=== PATIENT | male | born 1990 | race Two or more races ===

== ENCOUNTER 2019-08-30 20:25 | Emergency (ER) | payer MEDICAID ==
[~2019-08-30] VITALS: Ht 172.7 cm; Wt 59.0 kg
[2019-08-30 21:41] LABS: Basophils # (auto) 0 10 ^3/uL (0-0.2); Basophils % (auto) 0.2 % (0.0-2.0); Eosinophils # (auto) 0 10 ^3/uL (0-0.8); Hemoglobin 16.7 g/dL (13.5-17.5); Lymphocytes # (auto) 1.5 10 ^3/uL (0.4-5.4); Lymphocytes % (auto) 13.1 % (10.0-50.0); Mean Corpuscular Hemoglobin 30.6 pg (28.0-32.0); Mean Corpuscular Hgb Conc. 33.4 g/dL (32.0-36.0); Mean Corpuscular Volume 91.7 fL (80.0-100.0); Monocytes # (auto) 0.8 10 ^3/uL (0-1.3); Monocytes % (auto) 7.2 % (0.0-12.0); Neutrophils # (auto) 9.1 10 ^3/uL (1.6-8.6); Neutrophils % (auto) 79.5 % (37.0-80.0); Platelet Count (auto) 291 10^3/uL (140-450); Red Blood Cells 5.45 10^6/uL (4.5-5.90); Red Cell Distribution Width 13.1 % (11.8-14.3); White Blood Cell 11.5 10^3/uL (4.4-10.8)
[2019-08-30 22:01] LABS: Albumin 4.4 g/dL (3.4-5.0); BUN/Creatinine Ratio 7.8; Calcium 9.5 mg/dL (8.5-10.1); Potassium 3.8 mmol/L (3.5-5.1)
[2019-08-30 22:04] LABS: Bilirubin, Total 0.6 mg/dL (0.2-1.0); Total Protein 8.7 g/dL (6.4-8.2)
[2019-08-30 22:48] LABS: Urine WBC None Seen /hpf (0 - 3)
[2019-08-30 22:57] LABS: Urine Bacteria NONE SEEN /hpf (None Seen); Urine Blood Negative /uL (Negative); Urine Specific Gravity 1.001 (1.001-1.035)
[2019-08-30 23:11] LABS: Alcohol, Urine < 3.0 mg/dL (0-5); Amphetamine Screen, Urine NEGATIVE (NEGATIVE); Barbiturate Scree,Urine NEGATIVE (NEGATIVE); Benzodiazephine Screen, Urine NEGATIVE (NEGATIVE); Cannabinoid Screen, Urine POSITIVE (NEGATIVE); Cocaine Screen, Urine NEGATIVE (NEGATIVE); Phencyclidine Screen, Urine NEGATIVE (NEGATIVE)
[2019-08-30 23:19] LABS: Opiate Scree,Urine NEGATIVE (NEGATIVE)
[2019-08-31] MEDS ORDERED: OLANZapine 5 MG TAB PO ONE (01:00)
[2019-08-31] MEDS ORDERED: SODIUM CHLORIDE 0.9% 2,000 ML IV ONE (01:00)
[2019-08-31] MEDS ORDERED: HALOPERIDOL LACTATE 5 MG/ML INJ VIAL IV PRN (01:30)
[2019-08-31 02:11] LABS: Magnesium 2.5 mg/dL (1.6-2.6); Salicylate 4.1 mg/dL (2.8-20.0)
[2019-08-31 02:14] LABS: Acetaminophen < 2.0 ug/mL (10-30)
[2019-08-31 02:14] LABS: INR 1.15 (0.9-1.15)
[2019-08-31 02:18] LABS: Phosphorus 3.1 mg/dL (2.5-4.90)
[2019-08-31 09:30] VITALS: BP 105/53
== END 2019-08-31 11:07 | disposition home or self-care (01) ==
LOC: ER 20:28
DX: F31.9 Bipolar disorder, unspecified (principal); M62.82 Rhabdomyolysis; F23 Brief psychotic disorder; M79.672 Pain in left foot; M79.671 Pain in right foot
CPT/HCPCS: 36415; 80053; 80307; 80329; 81001; 82550; 83735; 84100; 84484; 85025; 85610; 96374; 99285; J1630; J7030